=== PATIENT | male | born 1930 ===

== ENCOUNTER 2019-03-01 09:07 | Emergency (ER) | payer MEDICARE, OTHER ==
[~2019-03-01] VITALS: Ht 175.3 cm; Wt 76.0 kg
--- NOTE | 2019-03-01 09:38 | NUR ---
Assumed care of patient. C/O N/V and feeling as if something is stuck in his throat since last night. NAD. Family member at bedside. Will continue to monitor.
[2019-03-01] MEDS ORDERED: GLUCAGON 1 MG ONE (09:46)
[2019-03-01] MEDS ORDERED: GLUCAGON 1 MG IM ONE (10:00)
--- NOTE | 2019-03-01 10:19 | NUR ---
GI at bedside.
[2019-03-01] MEDS ORDERED: FENTANYL PF 100 MCG/2ML ONE ×2 (10:25→10:26)
[2019-03-01] MEDS ORDERED: MIDAZOLAM 1 MG/ML, 5ML ONE (10:26)
--- NOTE | 2019-03-01 11:14 | NUR ---
Patient placed on NIBP, pulse ox and stack attendant. Tri-color form filled out. Endo at bedside. PRocedure to be performed by GI , endo RN and endoscopy registered nurse.
--- NOTE | 2019-03-01 11:57 | NUR ---
Procedure complete. Endo RN at bedside monitoring patient. VSS.
--- NOTE | 2019-03-01 12:08 | NUR ---
Tolerating PO. Patient states, "I feel high". Patient not safe for DC.
[2019-03-01 12:47] VITALS: BP 122/60
--- NOTE | 2019-03-01 12:48 | NUR ---
Patient/Caregiver given discharge instructions and they have confirmed that they understand the instructions. Patient ambulatory with steady gait.
== END 2019-03-01 12:50 | disposition home or self-care (01) ==
LOC: ED 10:10
DX: T18.128A Food in esophagus causing other injury, initial encounter (principal); K21.9 Gastro-esophageal reflux disease without esophagitis; I10 Essential (primary) hypertension; M10.9 Gout, unspecified; Z79.899 Other long term (current) drug therapy; Z90.49 Acquired absence of other specified parts of digestive tract; X58.XXXA Exposure to other specified factors, initial encounter; Y93.89 Activity, other specified; Y92.89 Other specified places as the place of occurrence of the external cause; Y99.8 Other external cause status
CPT/HCPCS: 43247; 96372; 99152; 99285; J1610; J2250; J3010